=== PATIENT | male | born 1955 | race African-American/Black ===

== ENCOUNTER 2017-01-18 05:54 | Emergency (ER) | payer MEDICAID ==
[~2017-01-18] VITALS: Ht 185.4 cm; Wt 128.4 kg
[~2017-01-18 05:54] MED LIST: ALBU25PO2 MC; ALBUTEROL INH; COR12 PO; ECOTRIN PO; FLUT1DIS3 IH; FLUTICASONE IH; FURO40TA2 PO; IPRA21SP2 NS; LEVO500T15 PO; LISI10TA5 PO; P20 PO; PHENDM PO; SPIR25TA66 PO
[2017-01-18] MEDS ORDERED: SODIUM CHLORIDE 0.9% 1,000 ML IV ONE (06:58)
[2017-01-18 07:00] VITALS: BP 113/93
[2017-01-18] MEDS ORDERED: SULFAMETHOXAZOLE/TRIMETHOPRIM 800/160MG TABLET PO ONE (07:00)
[2017-01-18 07:16] LABS: HEMATOCRIT. 38.7 % (42.0-52.0); HEMOGLOBIN. 12.6 g/dL (14.0-18.0); MEAN CORPUSCULAR HEMOGLOBIN 24.2 pg (28.0-32.0); MEAN CORPUSCULAR HGB CONC 32.5 g/dL (31.0-37.0); MEAN CORPUSCULAR VOLUME 74.3 fL (80.0-94.0); MEAN PLATELET VOLUME 7.1 fl (7.4-10.4); PLATELET 302 x1000/uL (130-400); RED CELL DISTRIBUTION WIDTH 15.5 % (11.6-14.6); WHITE BLOOD COUNT 6.6 x1000/uL (4.5-11.0)
[2017-01-18 07:21] LABS: CHLORIDE 108 mEq/L (98-107); DIFFERENTIAL COMMENT 1; INDEX HEMOLYSI 1 (1-3); INDEX ICTERIC 1 (1-4); INDEX LIPEMIC 1 (1-3)
[2017-01-18 07:30] LABS: ALANINE AMINOTRANSFERASE 19 IU/L (13-61); ALBUMIN 3.3 g/dL (3.4-5.0); ANION GAP 14; CALCIUM 8.2 mg/dL (8.5-10.1); CARBON DIOXIDE 20 mEq/L (21-32); UREA NITROGEN BLOOD 19 mg/dL (7-21); eGFR > 60 mL/min (>60)
[2017-01-18 09:08] LABS: PLATELET ESTIMATE NORMAL
== END 2017-01-18 08:36 | disposition home or self-care (01) ==
LOC: ER 06:47
DX: R19.7 Diarrhea, unspecified (principal); Z79.899 Other long term (current) drug therapy; I11.0 Hypertensive heart disease with heart failure; I50.9 Heart failure, unspecified; Z87.891 Personal history of nicotine dependence
CPT/HCPCS: 36415; 80053; 85025; 96360; 99284; J7030; Z7610

== ENCOUNTER 2017-08-16 07:46 | Inpatient (IN) | payer MEDICAID ==
[~2017-08-16] VITALS: Ht 185.4 cm; Wt 131.5 kg
[~2017-08-16 07:46] MED LIST changes: +FURO-151 PO; -FURO40TA2 PO; -LEVO500T15 PO; +LEVO500T2 PO; +SPIR25TA PO; -SPIR25TA66 PO
[2017-08-16] MEDS ORDERED: GABA-529 PO (08:00)
[2017-08-16] MEDS ORDERED: METH500T PO (08:00)
[2017-08-16] MEDS ORDERED: NIFE30TA94 PO (08:00)
[2017-08-16] MEDS ORDERED: FUROSEMIDE 20MG/2ML VIAL IVP ONE (09:00)
[2017-08-16 09:01] LABS: BASOPHILS % 0.4 % (0.0-2.0); EOSINOPHILS % 0.2 % (0.0-5.0); HEMATOCRIT. 37.7 % (42.0-52.0); HEMOGLOBIN. 12.2 g/dL (14.0-18.0); LYMPHOCYTES % 8.9 % (20.0-50.0); MEAN CORPUSCULAR HEMOGLOBIN 24.1 pg (28.0-32.0); MEAN CORPUSCULAR VOLUME 74.7 fL (80.0-94.0); MEAN PLATELET VOLUME 7.4 fl (7.4-10.4); MONOCYTES % 7.8 % (2.0-8.0); NEUTROPHILS % 82.7 % (40.0-76.0); PLATELET 310 x1000/uL (130-400); RED BLOOD CELL COUNT 5.05 mill/uL (4.7-6.1); RED CELL DISTRIBUTION WIDTH 16.2 % (11.6-14.6)
[2017-08-16 09:06] LABS: PARTIAL THROMBOPLASTIN TIME 24.5 sec (23.4-31.0); PROTHROMBIN TIME 10.4 sec (9.4-11.6)
[2017-08-16 09:13] LABS: CARBON DIOXIDE 27 mEq/L (21-32); CHLORIDE 108 mEq/L (98-107); CREATINE KINASE 136 IU/L (39-308); TROPONIN I < 0.02 ng/mL (0.00-0.04)
[2017-08-16 09:18] LABS: CREATINE KINASE MB FRACTION 2.4 ng/mL (0.5-3.6)
[2017-08-16] MEDS ORDERED: HYDROCODONE/ACETAMINOPHEN 5/325MG TABLET PO ONE (11:15)
[2017-08-16 14:30] VITALS: BP 143/101
[2017-08-16 16:00] VITALS: BP 139/98
[2017-08-16] MEDS ORDERED: LORAZEPAM 1MG TABLET PO PRN (17:30)
[2017-08-16] MEDS ORDERED: CLONIDINE 0.1MG TABLET PO PRN (17:45)
[2017-08-16] MEDS ORDERED: HYDROCODONE/ACETAMINOPHEN 10/325MG TABLET PO PRN (18:18)
[2017-08-16] MEDS: LISINOPRIL 20MG TABLET PO SCH (18:27)
[2017-08-16] MEDS: AMLODIPINE 10MG TABLET PO SCH (18:28)
[2017-08-16 20:00] VITALS: BP 125/58
[2017-08-16 20:42] LABS: BASOPHILS % 0.4 % (0.0-2.0); EOSINOPHILS % 0.3 % (0.0-5.0); HEMATOCRIT. 38.8 % (42.0-52.0); HEMOGLOBIN. 12.4 g/dL (14.0-18.0); LYMPHOCYTES % 8.9 % (20.0-50.0); MEAN CORPUSCULAR VOLUME 74.9 fL (80.0-94.0); MEAN PLATELET VOLUME 7.6 fl (7.4-10.4); MONOCYTES % 7.5 % (2.0-8.0); NEUTROPHILS % 82.9 % (40.0-76.0); PLATELET 319 x1000/uL (130-400); RED BLOOD CELL COUNT 5.18 mill/uL (4.7-6.1); RED CELL DISTRIBUTION WIDTH 16.2 % (11.6-14.6)
[2017-08-16 20:56] LABS: CHLORIDE 105 mEq/L (98-107)
[2017-08-16 21:02] LABS: CARBON DIOXIDE 26 mEq/L (21-32); HDL CHOLESTEROL 71 mg/dL (40-59); LDL CHOLESTEROL 91 mg/dL (5-100)
[2017-08-16 21:23] LABS: HEPATITIS B SURFACE ANTIGEN NEGATIVE
[2017-08-16 21:51] LABS: HEPATITIS B CORE AB IGM NEGATIVE
[2017-08-16 21:53] LABS: HEPATITIS A AB IGM NEGATIVE (NEGATIVE)
[2017-08-17] VITALS: BP 118/82
[2017-08-17 04:00] VITALS: BP 114/81
[2017-08-17] MEDS ORDERED: FUROSEMIDE 40MG TABLET PO SCH (09:00)
[2017-08-17] MEDS: AMLODIPINE 10MG TABLET PO SCH (09:26)
[2017-08-17] MEDS: LISINOPRIL 20MG TABLET PO SCH ×2 (09:26→22:27)
[2017-08-17 12:01] VITALS: BP 128/95
[2017-08-17] MEDS ORDERED: IPRATROPIUM/ALBUTEROL 0.5-3(2.5)MG/3ML NEB HHN PRN (12:15)
[2017-08-17] MEDS ORDERED: ASPIRIN 81MG EC TABLET PO SCH (15:00)
[2017-08-17 16:00] VITALS: BP 137/92
[2017-08-17] MEDS ORDERED: BUDESONIDE 0.5MG/2ML NEB HHN SCH (18:00)
[2017-08-17 20:00] VITALS: BP 132/93
[2017-08-17] MEDS: IPRATROPIUM/ALBUTEROL 0.5-3(2.5)MG/3ML NEB HHN SCH (20:28)
[2017-08-17 21:39] VITALS: BP 132/93
[2017-08-18] VITALS: BP 135/80
[2017-08-18] MEDS: IPRATROPIUM/ALBUTEROL 0.5-3(2.5)MG/3ML NEB HHN SCH (02:36)
[2017-08-18 04:00] VITALS: BP 127/94
[2017-08-18 08:00] VITALS: BP 129/95
== END 2017-08-18 07:55 | disposition left against medical advice (07) | DRG 811 ==
LOC: ER 08:11 → 5WST 10:00 → EDBEDREQTM 10:06 → EDBEDREQ 10:06 → ENRESERV 12:57
PROVIDERS: ADMIT Internal Medicine; ATTEND Internal Medicine
DX: T78.40XA Allergy, unspecified, initial encounter (principal); J96.10 Chronic respiratory failure, unspecified whether with hypoxia or hypercapnia; I50.22 Chronic systolic (congestive) heart failure; J44.1 Chronic obstructive pulmonary disease with (acute) exacerbation; I11.0 Hypertensive heart disease with heart failure; I16.0 Hypertensive urgency; B19.20 Unspecified viral hepatitis C without hepatic coma; M25.511 Pain in right shoulder; E66.9 Obesity, unspecified; G89.29 Other chronic pain; F41.9 Anxiety disorder, unspecified; R07.89 Other chest pain; L20.9 Atopic dermatitis, unspecified; Z79.899 Other long term (current) drug therapy; Z85.71 Personal history of Hodgkin lymphoma; Z87.891 Personal history of nicotine dependence; Z92.21 Personal history of antineoplastic chemotherapy; Z79.2 Long term (current) use of antibiotics; Z72.89 Other problems related to lifestyle
CPT/HCPCS: 36415; 71010; 76705; 80053; 80061; 82550; 82553; 83036; 83690; 83880; 84443; 84484; 85025; 85610; 85730; 86705; 86709; 86803; 87340; 93005; 93306; 93970; 94640; 96374; 99291; J1940; J7620; J7626

== ENCOUNTER 2018-10-08 21:09 | Inpatient (IN) | payer MEDICAID ==
[~2018-10-08] VITALS: Ht 185.4 cm; Wt 131.5 kg
[~2018-10-08 21:09] MED LIST changes: +GABA-529 PO; +METH500T PO; +NIFE30TA94 PO
[2018-10-08] MEDS ORDERED: ALBUTEROL (0.083%) 2.5MG/3ML NEB HHN STA (23:37)
[2018-10-08] MEDS ORDERED: IPRATROPIUM BROMIDE (0.02%) 0.5MG/2.5ML NEB HHN STA (23:37)
[2018-10-08] MEDS ORDERED: FUROSEMIDE 40MG/4ML VIAL IV ONE (23:45)
[2018-10-08] MEDS ORDERED: NITROGLYCERIN OINT 1GM/INCH UDPKT TD ONE (23:45)
[2018-10-09 00:30] LABS: BASOPHILS % 0.9 % (0.0-2.0); CHLORIDE 105 mEq/L (98-107); EOSINOPHILS % 0.1 % (0.0-5.0); HEMOGLOBIN. 13.2 g/dL (14.0-18.0); LYMPHOCYTES % 13.4 % (20.0-50.0); MEAN CORPUSCULAR HEMOGLOBIN 25.3 pg (28.0-32.0); MEAN CORPUSCULAR VOLUME 76.6 fL (80.0-94.0); MEAN PLATELET VOLUME 7.5 fl (7.4-10.4); NEUTROPHILS % 79.6 % (40.0-76.0); PLATELET 340 x1000/uL (130-400); RED BLOOD CELL COUNT 5.22 mill/uL (4.7-6.1)
[2018-10-09 03:30] VITALS: BP 140/95
[2018-10-09 04:00] VITALS: BP 140/95
[2018-10-09] MEDS ORDERED: HYDROCODONE/ACETAMINOPHEN 5/325MG TABLET PO PRN (05:30)
[2018-10-09] MEDS ORDERED: CLONIDINE 0.1MG TABLET PO PRN (05:30)
[2018-10-09] MEDS: GUAIFENESIN 200MG/10ML SUGAR FREE UDC PO PRN ×2 (06:29→21:45)
[2018-10-09 08:00] VITALS: BP 150/100
[2018-10-09] MEDS: FUROSEMIDE 40MG/4ML VIAL IVP SCH (09:27)
[2018-10-09] MEDS: ENOXAPARIN 30MG/0.3ML SYR SUBCUT SCH ×2 (09:39→21:45)
[2018-10-09] MEDS: IPRATROPIUM/ALBUTEROL 0.5-3(2.5)MG/3ML NEB HHN SCH ×3 (09:49→20:17)
[2018-10-09 12:00] VITALS: BP 131/98
[2018-10-09 15:25] LABS: BASOPHILS % 0.8 % (0.0-2.0); EOSINOPHILS % 0.5 % (0.0-5.0); HEMOGLOBIN. 13.3 g/dL (14.0-18.0); LYMPHOCYTES % 20.8 % (20.0-50.0); MEAN CORPUSCULAR HEMOGLOBIN 24.9 pg (28.0-32.0); MEAN CORPUSCULAR VOLUME 76.9 fL (80.0-94.0); MEAN PLATELET VOLUME 7.9 fl (7.4-10.4); MONOCYTES % 8.4 % (2.0-8.0); NEUTROPHILS % 69.5 % (40.0-76.0); PLATELET 356 x1000/uL (130-400); RED BLOOD CELL COUNT 5.34 mill/uL (4.7-6.1); RED CELL DISTRIBUTION WIDTH 15.8 % (11.6-14.6)
[2018-10-09 15:37] LABS: CHLORIDE 103 mEq/L (98-107)
[2018-10-09] MEDS ORDERED: INFLUENZA VIRUS VACCINE(AFLURIA) 0.5ML SYR IM ONE (16:15)
[2018-10-09] MEDS ORDERED: PNEUMOCOCCAL 23-VAL P-SAC VAC 0.5 ML IM ONE (16:15)
[2018-10-09 20:00] VITALS: BP 127/99
[2018-10-09] MEDS ORDERED: CARVEDILOL 12.5MG TABLET PO SCH (21:00)
[2018-10-10] VITALS: BP 112/63
[2018-10-10] MEDS: IPRATROPIUM/ALBUTEROL 0.5-3(2.5)MG/3ML NEB HHN SCH ×3 (01:41→14:15)
[2018-10-10 04:00] VITALS: BP 141/103
[2018-10-10 08:00] VITALS: BP 144/111
[2018-10-10] MEDS ORDERED: REGADENOSON 0.4 MG/5 ML IV SCH (08:15)
[2018-10-10] MEDS ORDERED: CARVEDILOL 25MG TABLET PO SCH (09:00)
[2018-10-10] MEDS: ENOXAPARIN 30MG/0.3ML SYR SUBCUT SCH (12:03)
[2018-10-10] MEDS: FUROSEMIDE 40MG/4ML VIAL IVP SCH (12:03)
== END 2018-10-10 17:45 | disposition left against medical advice (07) | DRG 194 ==
LOC: ER 21:09 → 7WST 10-09 02:08 → EDBEDREQ 10-09 02:13 → EDBEDREQTM 10-09 02:13 → EDBEDREQDT 10-09 02:13 → ENRESERV 10-09 02:22
PROVIDERS: ADMIT Internal Medicine; ATTEND Internal Medicine
DX: I11.0 Hypertensive heart disease with heart failure (principal); D72.829 Elevated white blood cell count, unspecified; J44.9 Chronic obstructive pulmonary disease, unspecified; I50.23 Acute on chronic systolic (congestive) heart failure; Z53.21 Procedure and treatment not carried out due to patient leaving prior to being seen by health care provider; E66.9 Obesity, unspecified; Z85.72 Personal history of non-Hodgkin lymphomas; Z87.891 Personal history of nicotine dependence; Z79.899 Other long term (current) drug therapy; Z68.38 Body mass index [BMI] 38.0-38.9, adult
CPT/HCPCS: 36415; 71045; 78452; 80048; 83880; 84484; 90686; 93005; 93017; 94640; 96374; 99285; A9500; J1650; J1940; J2785; J7611; J7620